=== PATIENT | male | born 1960 | race Caucasian/White ===

== ENCOUNTER 2021-11-17 18:42 | Emergency (ER) | payer OTHER ==
[2021-11-17 21:08] LABS: HEMOGLOBIN 12.4 gm/dl (14.0-17.5); RED BLOOD COUNT 3.93 M/UL (4.20-5.50); WHITE BLOOD COUNT 15.6 K/UL (4.5-11.0)
[2021-11-17 21:31] LABS: BUN/CREATININE RATIO 16 (0-10)
== END 2021-11-17 21:30 | disposition home or self-care (01) ==
LOC: ER1 18:42
PROVIDERS: Physician Assistant
DX: I71.02 Dissection of abdominal aorta (principal); F17.210 Nicotine dependence, cigarettes, uncomplicated; R10.30 Lower abdominal pain, unspecified
CPT/HCPCS: 71045; 71275; 75635; 80053; 82550; 82553; 83605; 83690; 83874; 84484; 85025; 86850; 86900; 86901; 86920; 94760; 96374; 96375; 99285; J2270; P9016; Q9967